=== PATIENT | female | born 1975 | race Caucasian/White ===

== ENCOUNTER → 2024-06-07 16:19 | Outpatient (BNVA) | payer SELFPAY | PROVIDERS: PCP Registered Nurse; Visit Provider Nurse Practitioner Family ==

== ENCOUNTER → 2024-06-08 09:31 | Outpatient (BNVA) | payer SELFPAY | PROVIDERS: PCP Registered Nurse; Visit Provider Nurse Practitioner Family ==

== ENCOUNTER → 2024-06-29 13:11 | Outpatient (BNVA) | payer SELFPAY | PROVIDERS: PCP Registered Nurse; Visit Provider Nurse Practitioner Family ==

== ENCOUNTER → 2024-07-01 13:10 | Outpatient (BNVA) | payer SELFPAY | PROVIDERS: PCP Registered Nurse; Visit Provider Nurse Practitioner Family ==

== ENCOUNTER → 2024-07-05 16:48 | Outpatient (BNVA) | payer SELFPAY | PROVIDERS: PCP Registered Nurse; Visit Provider Nurse Practitioner Family ==

== ENCOUNTER → 2024-07-16 14:25 | Outpatient (BNVA) | payer SELFPAY | PROVIDERS: PCP Registered Nurse; Visit Provider Family Medicine ==

== ENCOUNTER → 2024-07-19 15:55 | Outpatient (BNVA) | payer SELFPAY | PROVIDERS: PCP Registered Nurse; Visit Provider Nurse Practitioner Family ==

== ENCOUNTER → 2024-07-20 10:47 | Outpatient (BNVA) | payer SELFPAY | PROVIDERS: PCP Registered Nurse; Visit Provider Nurse Practitioner Family ==

== ENCOUNTER → 2024-07-23 13:15 | Outpatient (BNVA) | payer SELFPAY | PROVIDERS: PCP Registered Nurse; Visit Provider Nurse Practitioner Family ==

== ENCOUNTER → 2024-08-09 14:43 | Outpatient (BNVA) | payer MEDICARE, SELFPAY | PROVIDERS: PCP Registered Nurse; Visit Provider Nurse Practitioner Family ==

== ENCOUNTER → 2024-08-10 09:48 | Outpatient (BNVA) | payer MEDICARE, SELFPAY | PROVIDERS: PCP Registered Nurse; Visit Provider Nurse Practitioner Family ==

== ENCOUNTER → 2024-08-12 15:50 | Outpatient (BNVA) | payer MEDICARE, SELFPAY | PROVIDERS: PCP Registered Nurse; Visit Provider Nurse Practitioner Family ==

== ENCOUNTER → 2024-08-13 09:49 | Outpatient (BNVA) | payer MEDICARE, SELFPAY | PROVIDERS: PCP Registered Nurse; Visit Provider Nurse Practitioner Family ==

== ENCOUNTER → 2024-08-20 09:22 | Outpatient (BNVA) | payer MEDICARE, SELFPAY | PROVIDERS: PCP Registered Nurse; Visit Provider Nurse Practitioner Family ==